=== PATIENT | male | born 1950 | race Caucasian/White ===

== ENCOUNTER 2018-06-12 13:22 | Emergency (ER) | payer MEDICARE, BC ==
--- NOTE | 2018-06-12 13:34 | Emergency Department Record ---
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 PMH parkinson disease at least for one year. COPD and home oxygen at 3 liters per minute, CAD with cardiac stents. hypertension,. Patient denies weakness, in his right arm or right leg Onset/Timin -: Days(s) Location: Face Consistency: Intermittent Improves with: None Worsens with: None Associated Symptoms: Denies other symptoms - Related Data Home Medications Medication Instructions Recorded Confirmed Last Taken Aspirin 325 mg PO DAILY 06/12/18 06/12/18 Unknown Atorvastatin Calcium [Lipitor] 20 mg PO DAILY 06/12/18 06/12/18 Unknown Bupropion HCl [Bupropion Xl] 150 mg PO DAILY 06/12/18 06/12/18 Unknown Carbidopa/Levodopa [Carbidopa-Levo 1 each PO DAILY 06/12/18 06/12/18 Unknown 25-100 mg Odt] Clopidogrel Bisulfate [Clopidogrel] 75 mg PO DAILY 06/12/18 06/12/18 Unknown Cyclobenzaprine HCl [Flexeril] 10 mg PO TID 06/12/18 06/12/18 Unknown Fluoxetine HCl [Prozac] 40 mg PO DAILY 06/12/18 06/12/18 Unknown Furosemide 40 mg PO DAILY 06/12/18 06/12/18 Unknown Lisinopril 20 mg PO DAILY 06/12/18 06/12/18 Unknown Metoclopramide HCl [Reglan] 10 mg PO DAILY 06/12/18 06/12/18 Unknown Nortriptyline HCl 25 mg PO DAILY 06/12/18 06/12/18 Unknown Omeprazole [Prilosec] 20 mg PO DAILY 06/12/18 06/12/18 Unknown Oxycodone HCl [Oxycontin] 10 mg PO Q6H 06/12/18 06/12/18 Unknown Pramipexole Di-HCl [Mirapex ER] 1.5 mg PO DAILY 06/12/18 06/12/18 Unknown Tamsulosin HCl [Flomax] 0.4 mg PO DAILY 06/12/18 06/12/18 Unknown Tramadol HCl 50 mg PO Q3H 06/12/18 06/12/18 Unknown Previous Rx's Medication Instructions Recorded Acyclovir [Zovirax] 400 mg PO 5XD #35 tablet 06/12/18 Prednisone [Prednisone 10Mg] 30 mg PO BID #45 tab 06/12/18 Allergies Allergy/AdvReac Type Severity Reaction Status Date / Time morphine Allergy ALTERED Verified 06/12/18 13:40 MENTAL STATUS Travel Screening - Travel/Exposure Within Last 30 Days Have you traveled within the last 30 days?: No Review of Systems Reviewed: No additional complaints except as noted below Constitutional: Reports: As per HPI. Denies: Chills, Fever, Malaise, Night sweats, Weakness, Weight change Eyes: Reports: As per HPI. Denies: Eye discharge, Eye pain, Photophobia, Vision change ENT: Reports: As per HPI. Denies: Congestion, Dental pain, Ear pain, Epistaxis , Hearing loss, Throat pain Respiratory: Reports: As per HPI. Denies: Cough, Dyspnea, Hemoptysis, Stridor, Wheezes Cardiovascular: Reports: As per HPI. Denies: Arrhythmia, Chest pain, Dyspnea on exertion, Edema, Murmurs, Orthopnea, Palpitations, Paroxysmal nocturnal dyspnea, Rheumatic Fever, Syncope Endocrine: Reports: As per HPI. Denies: Fatigue, Heat or cold intolerance, Polydipsia, Polyuria Gastrointestinal: Reports: As per HPI. Denies: Abdominal pain, Constipation, Diarrhea, Hematemesis, Hematochezia, Melena, Nausea, Vomiting Genitourinary: Reports: As per HPI. Denies: Dysuria, Frequency, Hematuria, Incontinence, Retention, Testicular pain, Testicular mass, Urgency Musculoskeletal: Reports: As per HPI. Denies: Arthralgia, Back pain, Gout, Joint swelling, Myalgia, Neck pain Skin: Reports: As per HPI. Denies: Bruising, Change in color, Change in hair/ nails, Lesions, Pruritus, Rash Neurological: Reports: As per HPI, Other (right facial droop, rest of neuro intact). Denies: Abnormal gait, Confusion, Headache, Numbness, Paresthesias, Seizure, Tingling, Tremors, Vertigo, Weakness Psychiatric: Reports: As per HPI. Denies: Anxiety, Auditory hallucinations, Depression, Homicidal thoughts, Suicidal thoughts, Visual hallucinations Hematological/Lymphatic: Reports: As per HPI. Denies: Anemia, Blood Clots, Easy bleeding, Easy bruising, Swollen glands Past Medical History - SOCIAL HISTORY Smoking Status: Former smoker - RESPIRATORY Hx Respiratory Disorders: Yes Hx Asthma: Yes Hx COPD: Yes Hx Dyspnea: Yes Hx Sleep Apnea: Yes - CARDIOVASCULAR Hx Cardio Disorders: Yes Hx Cardiac Cath: Yes Hx Chest Pain: Yes Hx Edema: Yes Hx Hypertension: Yes Hx Coronary Artery Disease: Yes Hx Coronary Stent: Yes Comment:: HIGH CHOLESTEROL - NEURO Hx Neuro Disorders: No - GI Hx GI Disorders: Yes Hx Reflux: Yes - Hx Genitourinary Disorders: Yes Hx Bladder Problem: Yes - ENDOCRINE Hx Endocrine Disorders: No - MUSCULOSKELETAL Hx Musculoskeletal Disorders: No - PSYCH Hx Psych Problems: Yes Hx Anxiety: Yes Hx Depression: Yes - HEMATOLOGY/ONCOLOGY Hx Hematology/Oncology Disorders: No Family Medical History Any Significant Family History?: Yes Hx Dementia: Mother Hx Heart Disease: Father Physical Exam - General General Appearance: Alert, Oriented x3, Cooperative, No acute distress - Head Head exam: Normal inspection - Eye Eye exam: Normal appearance, PERRL Pupils: Normal accommodation - ENT ENT exam: Normal exam, Mucous membranes moist, Normal external ear exam, Normal orophraynx, TM's normal bilaterally Ear exam: Normal external inspection. negative: External canal tenderness Nasal Exam: Normal inspection. negative: Discharge, Sinus tenderness Mouth exam: Normal external inspection, Tongue normal Teeth exam: Normal inspection. negative: Dental caries Throat exam: Normal inspection. negative: Tonsillar erythema, Tonsillar exudate - Neck Neck exam: Normal inspection, Full ROM. negative: Tenderness - Respiratory Respiratory exam: Normal lung sounds bilaterally. negative: Respiratory distress - Cardiovascular Cardiovascular Exam: Regular rate, Normal rhythm, Normal heart sounds - GI/Abdominal GI/Abdominal exam: Soft, Normal bowel sounds. negative: Tenderness - Rectal Rectal exam: Deferred - exam: Deferred - Extremities Extremities exam: Normal inspection, Full ROM, Normal capillary refill. negative: Tenderness - Back Back exam: Reports: Normal inspection, Full ROM. Denies: Muscle spasm, Rash noted, Tenderness - Neurological Neurological exam: Abnormal gait (shuffling gait of parkinson's disease,right facial paralysis of both upper and lower face), Alert, Oriented X3, Reflexes normal - Psychiatric Psychiatric exam: Normal affect, Normal mood - Skin Skin exam: Dry, Intact, Normal color, Warm Course Vital Signs 06/12/18 13:26 Temperature 98.4 F Pulse Rate 98 H Respiratory 18 Rate Blood Pressure 111/67 Pulse Ox 98 - Reevaluation(s) Reevaluation #1: patient denies headache and moving his arms and legs the way he moves all his extremities and he has a tremor of parkinson disease and shuffling gait 06/12/18 14:05 Reevaluation #2: repeat neuro exam staying the same and consistent with Monterroso's palsey 06/12/18 14:24 Medical Decision Making - Data Complexity MDM Data: Labs Ordered and/or Reviewed, X-Ray Ordered and/or Reviewed (CT head neg) - Lab Data Result diagrams: 06/12/18 13:38 06/12/18 13:38 Disposition Clinical Impression: Monterroso's palsy Disposition: Home, Self-Care Condition: (1) Good Instructions: Monterroso Palsy (ED) Additional Instructions: follow up with family Dr in one week( see either Isamar or Dr Moore take prednisone 30 mg BID than taper off one pill each day acyclovir 400 mg five times a day tape right eye closed at night and use lactilub ointment to keep eye moist at night and use artificial tears during the day Prescriptions: Acyclovir [Zovirax] 400 mg PO 5XD #35 tablet Prednisone [Prednisone 10Mg] 30 mg PO BID #45 tab Forms: Patient Portal Access Time of Disposition: 14:47 Quality - Quality Measures Quality Measures: N/A - Blood Pressure Screening Does Patient Have Any of the Following: No Blood Pressure Classification: Normal BP Reading Systolic Measurement: 111 Diastolic Measurement: 67 Screening for High Blood Pressure: < Normal BP, F/U Not Required > [G8783]
[2018-06-12 13:45] LABS: BASO % 0.3 % (0-6); EOS % 1.3 % (0-6); HEMATOCRIT 36.6 % (42.0-52.0); HEMOGLOBIN 11.2 gm/dl (14.0-18.0); LYMPH % 17.5 % (16-45); MEAN CELL VOLUME 86.5 fl (81-97); MEAN CORPUSCULAR HGB CONC 30.6 g/dl (32-36); MEAN PLATELET VOLUME 8.4 fl (7.4-10.4); MONO % 7.9 % (0-9); PLATELET COUNT 453 K/uL (130-400); RED BLOOD COUNT 4.23 M/uL (4.40-5.70); RED CELL DISTRIBUTION WIDTH 15.7 % (11.5-14.5); WHITE BLOOD COUNT W/O DIFF 9.1 K/uL (4.2-12.2)
[2018-06-12 13:46] LABS: MEAN CORPUSCULAR HEMOGLOBIN 26.4 pg (27-33)
[2018-06-12 13:59] LABS: BLOOD UREA NITROGEN 8 mg/dL (8-23); CREATININE 1.2 mg/dL (0.7-1.2); EST GLOMERULAR FILTRATION RATE > 60 mL/min; INR 1.1; PARTIAL THROMBOPLASTIN TIME 25.7 SECONDS (24.5-39.1); PROTHROMBIN TIME (PATIENT) 10.7 SECONDS (9.5-12.1)
[2018-06-12 14:02] LABS: GLUCOSE,RANDOM 78 mg/dL (74-109)
[2018-06-12] MEDS ORDERED: ACYCLOVIR 200 MG CAPSULE PO ONE (14:08)
[2018-06-12] MEDS ORDERED: POTASSIUM CHLORIDE 20 MEQ TABLET PO ONE (14:09)
[2018-06-12] MEDS ORDERED: METHYLPREDNISOLONE SOD 40MG/VIAL IVP ONE (14:25)
--- NOTE | 2018-06-13 10:43 | CT SCAN REPORT ---
EXAM: CT OF THE BRAIN WITHOUT CONTRAST HISTORY: MENTAL STATUS CHANGE. TECHNIQUE: Sequential axial images were obtained from the foramen magnum to the vertex without contrast administration. FINDINGS: The brain volume is normal. No large territorial infarct, hemorrhage , mass effect, or midline shift. No extraaxial fluid collection. The orbits, paranasal sinuses and mastoid air cells are normal. IMPRESSION: NO ACUTE INTRACRANIAL ABNORMALITY IS APPRECIATED. JOB NUMBER: [id number] MTDD
== END 2018-06-12 15:15 | disposition home or self-care (01) ==
LOC: ER 13:22
DX: G51.0 Bell's palsy (principal); R41.82 Altered mental status, unspecified; G20 Parkinson's disease; J44.9 Chronic obstructive pulmonary disease, unspecified; I10 Essential (primary) hypertension; Z99.81 Dependence on supplemental oxygen; Z87.891 Personal history of nicotine dependence
CPT/HCPCS: 70450; 80048; 85025; 85610; 85730; 93005; 93010; 96374; 99284; J2920